=== PATIENT | male | born 1925 | race Caucasian/White ===

== ENCOUNTER 2016-11-07 22:51 | Emergency (ER) | payer MEDICARE, OTHER ==
[2016-11-07] MEDS ORDERED: Albuterol/Ipratropium 3.0-0.5 MG/3 ML Neb Soln NEB ONE (23:15)
[2016-11-07] MEDS ORDERED: Piperacillin/Tazobactam 4.5 GM in Sodium Chloride 0.9% 100 ML IV SCH (23:15)
[2016-11-07 23:57] LABS: CHLORIDE,CL 106 mmol/L (98-107); SODIUM,NA 142 mmol/L (136-145)
--- NOTE | 2016-11-08 00:30 | EDM.PDOC ---
ED HISTORY OF PRESENT ILLNESS - General Chief Complaint: Fever Stated Complaint: SOB and hypoxemia Time Seen by Provider: 11/07/16 23:02 Source of Information: Reports: EMS, RN History Limitations: Reports: Altered mental status, Language barrier (patient just mumbling) - History of Present Illness INITIAL COMMENTS - FREE TEXT/NARRATIVE: Nursing staff at care center stated that the patient began coughing 3 days ago. He developed a fever and became hypoxic 11/07/2016 around 2300. His oxygen saturation was in the low 80's without oxygen. Symptom Onset Date: 11/05/16 Severity: moderate Quality: Reports: Ache Improves with: Reports: Other (oxygen) Context, General: Reports: Exercise Associated Symptoms (General): Reports: cough, fever/chills - Related Data Allergies/ADRs: Allergies Allergy/AdvReac Type Severity Reaction Status Date / Time morphine Allergy Cannot Verified 11/08/16 00:09 Remember Home Meds: Home Meds Acetaminophen [Tylenol] 2 tab PO ASDIRECTED PRN 05/24/15 [History] Famotidine 20 mg PO DAILY 05/24/15 [History] Gabapentin [Neurontin] 100 mg PO TID 05/24/15 [History] Glycopyrrolate [Robinul] 1 mg PO BID 05/24/15 [History] LORazepam 0.5 mg PO ASDIRECTED PRN 05/24/15 [History] levETIRAcetam [Levetiracetam] 1,000 mg PO BID 05/24/15 [History] Amoxicillin/Potassium Clav [Augmentin 875-125 Tablet] 1 each PO BID #20 tablet 11/08/16 [Rx] Past Medical History Cardiovascular History: Reports: Afib, Hypertension Respiratory History: Reports: COPD Gastrointestinal History: Reports: GERD Other Musculoskeletal History: spinal stenosis Neurological History: Reports: CVA, TIA, Other (see below) Other Neuro History: subarachnoid bleed, dysphagia Psychiatric History: Reports: Depression, Psychosis Other Psychiatric History: delusions Hematologic History: Reports: Anemia - Infectious Disease History Infectious Disease History: Reports: MRSA Social & Family History - Tobacco Use Smoking Status *Q: Unknown Ever Smoked - Alcohol Use Days Per Week of Alcohol Use: 1 (drinks on the weekends per his son) - Living Situation & Occupation Living situation: Reports: alone (when he [place] to the farm house, usually lives at [facility]) ED ROS GENERAL - Review of Systems Review Of Systems: ROS reveals no pertinent complaints other than HPI. Constitutional: Reports: fever, chills, weakness, fatigue HEENT: Reports: No symptoms Respiratory: Reports: Shortness of Breath, Wheezing, Cough Cardiovascular: Reports: No symptoms Endocrine: Reports: no symptoms GI/Abdominal: Reports: No symptoms : Reports: no symptoms Musculoskeletal: Reports: no symptoms Skin: Reports: no symptoms Neurological: Reports: Confusion Psychiatric: Reports: No symptoms Hematologic/Lymphatic: Reports: no symptoms Immunologic: Reports: no symptoms ED EXAM, GENERAL - Physical Exam Exam: See Below Exam Limited By: Language barrier General Appearance: alert, mild distress Ears: normal external exam, normal canal, hearing grossly normal, normal TMs Ear Exam: bilateral ear: auricle normal, canal normal, TM normal Nose: normal inspection, normal mucosa, no blood Throat/Mouth: Normal inspection, Normal lips, Normal teeth, Normal gums, Normal oropharynx, Normal voice, No airway compromise Head: atraumatic, normocephalic Neck: normal inspection, supple, non-tender, full range of motion Respiratory/Chest: decreased breath sounds, crackles, wheezing, prolonged expiration Cardiovascular: JVD, tachycardia, irregularly irregular Peripheral Pulses: 2+: radial (L), radial (R) GI/Abdominal: normal bowel sounds, soft, non tender, no organomegaly, no distention, no abnormal bruit, no mass Back Exam: normal inspection, full range of motion, NT Extremities: normal inspection, normal range of motion, non-tender, normal capillary refill, no pedal edema Neurological: alert, confused Psychiatric: anxious Skin Exam: Dry, Intact, Other (hot to touch) Course - Vital Signs Last Recorded V/S: Last Vital Signs Temp 38.3 C H 11/07/16 22:55 Pulse 103 H 11/07/16 23:45 Resp 20 11/07/16 23:45 BP 137/78 11/07/16 23:45 Pulse Ox 92 L 11/07/16 23:45 - Orders/Labs/Meds Orders: Active Orders 24 hr Category Date Time Status CXR [Chest 1V Frontal] [CR] Stat Exams 11/07/16 23:14 Taken CULTURE BLOOD [BC] Stat Lab 11/07/16 23:20 Results CULTURE BLOOD [BC] Stat Lab 11/07/16 23:25 Results Piperacillin/Tazobactam [Zosyn] 4.5 gm Med 11/07/16 23:15 Active Sodium Chloride 0.9% [Normal Saline] 100 ml IV Q6H Blood Culture x2 Reflex Set [OM.PC] Stat Oth 11/07/16 23:12 Ordered Medication Orders Piperacillin Sod/Tazobactam (Sod 4.5 gm/ Sodium Chloride) 100 mls @ 200 mls/hr IV Q6H ANGELA Last Admin: 11/07/16 23:54 Dose: 200 mls/hr Labs: Laboratory Tests 11/07/16 11/07/16 11/07/16 Range/Units 23:20 23:20 23:20 WBC 5.0 (4.0-10.0) x10^3/uL RBC 4.54 (4.5-6.0) x10^6/uL Hgb 14.4 (14.0-18.0) g/dL Hct 42.8 (40.0-52.0) % MCV 94.3 H (78.0-93.0) fL MCH 31.7 (26.0-32.0) pg MCHC 33.6 (32.0-36.0) g/dL RDW Coeff of [place] 14.3 (10.0-15.0) % Plt Count 272 (130-400) x10^3/uL Neut % (Auto) 81.7 H (50.0-80.0) % Lymph % (Auto) 13.1 L (25.0-50.0) % [place] % (Auto) 4.6 (2.0-11.0) % Eos % (Auto) 0.0 (0.0-4.0) % Baso % (Auto) 0.6 (0.2-1.2) % PT 13.1 H (10.0-12.8) SEC INR 1.2 L (2.0-3.5) APTT 24.7 (24.0-36.0) SEC Sodium 142 (136-145) mmol/L Potassium 3.8 (3.5-5.1) mmol/L Chloride 106 (98-107) mmol/L Carbon Dioxide 22 (21-32) mmol/L BUN 32 H (7-18) mg/dL Creatinine 1.0 (0.70-1.30) mg/dL Est Cr Clr Drug Dosing TNP Estimated GFR (MDRD) > 60 Glucose 245 H (74-106) mg/dL Lactic Acid (0.4-2.0) mmol/L Calcium 8.6 (8.5-10.1) mg/dL Corrected Calcium 8.92 (8.5-10.1) mg/dL Total Bilirubin 1.2 H (0.2-1.0) mg/dL AST 27 (15-37) U/L ALT 39 (16-63) U/L Alkaline Phosphatase 159 H (46-116) U/L Total Protein 7.4 (6.4-8.2) g/dL Albumin 3.6 (3.4-5.0) g/dL Globulin 3.8 Albumin/Globulin Ratio 0.95 / Range/Units 23:20 WBC (4.0-10.0) x10^3/uL RBC (4.5-6.0) x10^6/uL Hgb (14.0-18.0) g/dL Hct (40.0-52.0) % MCV (78.0-93.0) fL MCH (26.0-32.0) pg MCHC (32.0-36.0) g/dL RDW Coeff of [place] (10.0-15.0) % Plt Count (130-400) x10^3/uL Neut % (Auto) (50.0-80.0) % Lymph % (Auto) (25.0-50.0) % [place] % (Auto) (2.0-11.0) % Eos % (Auto) (0.0-4.0) % Baso % (Auto) (0.2-1.2) % PT (10.0-12.8) SEC INR (2.0-3.5) APTT (24.0-36.0) SEC Sodium (136-145) mmol/L Potassium (3.5-5.1) mmol/L Chloride (98-107) mmol/L Carbon Dioxide (21-32) mmol/L BUN (7-18) mg/dL Creatinine (0.70-1.30) mg/dL Est Cr Clr Drug Dosing Estimated GFR (MDRD) Glucose (74-106) mg/dL Lactic Acid 3.0 H (0.4-2.0) mmol/L Calcium (8.5-10.1) mg/dL Corrected Calcium (8.5-10.1) mg/dL Total Bilirubin (0.2-1.0) mg/dL AST (15-37) U/L ALT (16-63) U/L Alkaline Phosphatase (46-116) U/L Total Protein (6.4-8.2) g/dL Albumin (3.4-5.0) g/dL Globulin Albumin/Globulin Ratio Meds: Medications Generic Name Dose Route Start Last Admin Trade Name Freq PRN Reason Stop Dose Admin Piperacillin Sod/Tazobactam 100 mls @ 200 mls/hr 11/07/16 23:15 11/07/16 23: 54 Sod 4.5 gm/ Sodium Chloride IV 200 mls/hr Q6H ANGELA Administration Discontinued Medications Generic Name Dose Route Start Last Admin Trade Name Freq PRN Reason Stop Dose Admin Albuterol/Ipratropium 3 ml 11/07/16 23:15 11/07/16 23:55 Duoneb 3.0-0.5 Mg/3 Ml NEB 11/07/16 23:16 3 ml ONETIME ONE Administration - Radiology Interpretation Free Text/Narrative:: CXR shows possible right lower lobe infiltrate Departure - Departure Time of Disposition: 00:45 Disposition: DC/Tfer to [facility] Preliminary Cause of *Q: Respiratory failure Condition: good Clinical Impression: Pneumonia Qualifiers: Pneumonia type: aspiration pneumonia Aspiration pneumonia type: unspecified Laterality: right Lung location: lower lobe of lung Qualified Code(s): J69.0 - Pneumonitis due to inhalation of food and vomit Forms: ED Department Discharge Additional Instructions: Patient to follow up with Dr Hughes in the clinic on 11/08/2016 in the AM. Patient to be maintained on 4L oxygen NC to maintain SpO2 > 92%. DuoNebs q4 hours prn for SOB and hypoxia. ED Communication - ED Communication Date/Time Date: 11/08/16 Time Called: 00:20 - Discussed Case With (1) Discussed Case With (1): Outpatient Provider Person/s Notified (1): Lakshmi Hughes (She will f/u c pt in clinic tomorro) - My Orders Last 24 Hours: My Active Orders 11/07/16 23:12 Blood Culture x2 Reflex Set [OM.PC] Stat 11/07/16 23:14 CXR [Chest 1V Frontal] [CR] Stat 11/07/16 23:15 Piperacillin/Tazobactam [Zosyn] 4.5 gm Sodium Chloride 0.9% [Normal Saline] 100 ml IV Q6H 11/07/16 23:20 CULTURE BLOOD [BC] Stat 11/07/16 23:25 CULTURE BLOOD [BC] Stat - Assessment/Plan Last 24 Hours: My Active Orders 11/07/16 23:12 Blood Culture x2 Reflex Set [OM.PC] Stat 11/07/16 23:14 CXR [Chest 1V Frontal] [CR] Stat 11/07/16 23:15 Piperacillin/Tazobactam [Zosyn] 4.5 gm Sodium Chloride 0.9% [Normal Saline] 100 ml IV Q6H 11/07/16 23:20 CULTURE BLOOD [BC] Stat 11/07/16 23:25 CULTURE BLOOD [BC] Stat
[2016-11-08 00:51] VITALS: BP 146/78
== END 2016-11-08 01:00 ==
LOC: VM.ED 22:51
DX: J18.9 Pneumonia, unspecified organism (principal); I48.91 Unspecified atrial fibrillation; I10 Essential (primary) hypertension; J44.9 Chronic obstructive pulmonary disease, unspecified; K21.9 Gastro-esophageal reflux disease without esophagitis; F32.9 Major depressive disorder, single episode, unspecified; D64.9 Anemia, unspecified; Z88.6 Allergy status to analgesic agent; Z79.899 Other long term (current) drug therapy
CPT/HCPCS: 36415; 71010; 80053; 83605; 85025; 85610; 85730; 87040; 87804; 94640; 96365; 99285; J2543; J7050

== ENCOUNTER 2016-11-08 11:19 | Emergency (ER) | payer MEDICARE, OTHER ==
[2016-11-08] MEDS ORDERED: Iopamidol 612 MG/ML 100 ML Bottle IVPUSH ONE (12:22)
[2016-11-08] MEDS ORDERED: Sodium Chloride 0.9% 100 ML IV ONE (12:22)
--- NOTE | 2016-11-08 12:55 | EDM.PDOC ---
ED HPI GI/ABDOMINAL - General Chief Complaint: Abdominal Pain Stated Complaint: BOWEL ISSUES Time Seen by Provider: 11/08/16 11:26 Source of Information: Reports: Provider History Limitations: Reports: No limitations - History of Present Illness INITIAL COMMENTS - FREE TEXT/NARRATIVE: Patient was complaining of generalized abdominal pain in the clinic this AM after his follow up visit for RLL pneumonia. They completed an abdominal xray and labs at the clinic and asked that we evaluate the patient for an enlarged colon here in the ED with a CT. Symptom Onset Date: 11/08/16 Symptom Onset Time: 11:20 Timing/Duration: Reports: Gradual onset Location: generalized Quality: Reports: cramping, fullness Severity: mild Improves with: Reports: lying down Worsens with: Reports: palpation Associated Symptoms: Reports: fever/chills, malaise - Related Data Allergies/ADRs: Allergies Allergy/AdvReac Type Severity Reaction Status Date / Time morphine Allergy Cannot Verified 11/08/16 12:07 Remember Home Meds: Home Meds Acetaminophen [Tylenol] 2 tab PO Q6H PRN 05/24/15 [History] Famotidine 20 mg PO DAILY 05/24/15 [History] Gabapentin [Neurontin] 100 mg PO TID 05/24/15 [History] Glycopyrrolate [Robinul] 1 mg PO BID 05/24/15 [History] LORazepam 0.5 mg PO Q6H PRN 05/24/15 [History] levETIRAcetam [Levetiracetam] 1,000 mg PO BID 05/24/15 [History] Amoxicillin/Potassium Clav [Augmentin 875-125 Tablet] 1 each PO BID #20 tablet 11/08/16 [Rx] Bisacodyl [Dulcolax] 10 mg RECTAL DAILY PRN 11/08/16 [History] Bisacodyl [Laxative] 5 mg PO DAILY PRN 11/08/16 [History] Chlorhexidine Gluconate [Peridex 0.12% Rinse] 0.5 container PO ASDIRECTED [History] Dextran 70/Hypromellose [Artificial Tears] 1 each EYEBOTH Q4H PRN 11/08/16 [ History] Fluticasone/Vilanterol [Breo Ellipta 100-25 MCG Inhalation Kit] 1 puff IH TID [History] Ibuprofen 80 mg PO Q6H PRN 11/08/16 [History] Ipratropium/Albuterol Sulfate [Combivent Respimat Inhal [place]] 1 puff IH QID [History] Loperamide HCl [Imodium A-D] 2 mg PO ASDIRECTED PRN 11/08/16 [History] Phenytoin Sodium Extended [Dilantin] 200 mg PO BID 11/08/16 [History] Psyllium Husk/Aspartame [Ml-Mucil Powder] 5 ml PO DAILY 11/08/16 [History] Past Medical History Cardiovascular History: Reports: Afib, Hypertension Respiratory History: Reports: COPD Gastrointestinal History: Reports: GERD Other Musculoskeletal History: spinal stenosis Neurological History: Reports: CVA, TIA, Other (see below) Other Neuro History: subarachnoid bleed, dysphagia Psychiatric History: Reports: Depression, Psychosis Other Psychiatric History: delusions Hematologic History: Reports: Anemia - Infectious Disease History Infectious Disease History: Reports: MRSA Social & Family History - Tobacco Use Smoking Status *Q: Unknown Ever Smoked - Alcohol Use Days Per Week of Alcohol Use: 1 (drinks on the weekends per his son) - Living Situation & Occupation Living situation: Reports: alone (when he goes out to the farm house, usually lives at [facility]) ED ROS GENERAL - Review of Systems Review Of Systems: See Below Constitutional: Reports: fever, chills, malaise, weakness, fatigue HEENT: Reports: No symptoms Respiratory: Reports: Shortness of Breath, Wheezing, Cough Cardiovascular: Reports: Dyspnea on exertion Endocrine: Reports: no symptoms GI/Abdominal: Reports: Abdominal pain, Constipation, Distension : Reports: no symptoms Musculoskeletal: Reports: muscle pain, muscle stiffness Skin: Reports: no symptoms Neurological: Reports: Confusion, Weakness Psychiatric: Reports: Confusion Hematologic/Lymphatic: Reports: no symptoms Immunologic: Reports: no symptoms ED EXAM, GI/ABD - Physical Exam Exam: See Below Exam Limited By: Altered mental status General Appearance: alert, no apparent distress Ears: normal external exam, normal canal, hearing grossly normal, normal TMs Nose: normal inspection, normal mucosa, no blood Throat/Mouth: Normal inspection, Normal lips, Normal teeth, Normal gums, Normal oropharynx, Normal voice, No airway compromise Head: atraumatic, normocephalic Neck: supple, non-tender Respiratory/Chest: decreased breath sounds, crackles, prolonged expiration ( crackles and adventious sounds to the right lower lobe) GI/Abdominal: hypoactive bowel sounds, tenderness (generalized tenderness with palpation), distention Back Exam: normal inspection, full range of motion, NT Extremities: normal inspection, normal range of motion, non-tender, normal capillary refill, no pedal edema Neurological: alert, confused Psychiatric: normal affect, normal mood Skin Exam: Warm, Dry, Intact, Normal color Lymphatic: no adenopathy Course - Vital Signs Last Recorded V/S: Last Vital Signs Temp 36.6 C 11/08/16 11:25 Pulse 92 11/08/16 11:25 Resp 28 H 11/08/16 11:25 BP 106/53 L 11/08/16 11:25 Pulse Ox 91 L 11/08/16 11:25 - Orders/Labs/Meds Orders: Active Orders 24 hr Category Date Time Status RT Aerosol Therapy [RC] ASDIRECTED Care 11/08/16 13:36 Active Abdomen Pelvis w Cont [CT] Stat Exams 11/08/16 11:33 Taken Chest 1V Frontal [CR] Routine Exams 11/08/16 13:25 Taken Sodium Chloride 0.9% [Normal Saline] 1,000 ml Med 11/08/16 13:45 Active IV ASDIRECTED Nasogastric Orogastric Tube Insertion [OM.PC] Routine Oth 11/08/16 12:25 Ordered Medication Orders Sodium Chloride (Normal Saline) 1,000 mls @ 200 mls/hr IV ASDIRECTED ANGELA Last Admin: 11/08/16 13:40 Dose: 200 mls/hr Labs: Laboratory Tests 11/08/16 Range/Units 13:59 POC ABG pH 7.394 (7.35-7.45) POC ABG pCO2 33 L (35-45) mmHG POC ABG pO2 69 L (80-105) mmHG POC ABG HCO3 20 L (22-26) mmol/L POC ABG Total CO2 21 L (23-27) mmol/L POC ABG O2 Sat 94 L (95-98) % POC ABG Base Excess -5 L (-2-3) mmol/L POC FiO2 0.36 Meds: Medications Generic Name Dose Route Start Last Admin Trade Name Freq PRN Reason Stop Dose Admin Sodium Chloride 1,000 mls @ 200 mls/hr 11/08/16 13:45 11/08/16 13:40 Normal Saline IV 200 mls/hr ASDIRECTED ANGELA Administration Discontinued Medications Generic Name Dose Route Start Last Admin Trade Name Elvis PRN Reason Stop Dose Admin Albuterol/Ipratropium 3 ml 11/08/16 13:36 11/08/16 13:55 Duoneb 3.0-0.5 Mg/3 Ml NEB 11/08/16 13:37 3 ml ONETIME ONE Administration Sodium Chloride 100 mls @ 3 mls/sec 11/08/16 12:22 11/08/16 12:24 Normal Saline IV 11/08/16 12:23 3 mls/sec ONETIME ONE Administration Lactated Ringer's 1,000 mls @ 200 mls/hr 11/08/16 13:15 11/08/16 13:25 Ringers, Lactated IV 200 mls/hr ASDIRECTED ANGELA Administration Piperacillin Sod/Tazobactam 100 mls @ 200 mls/hr 11/08/16 13:08 11/08/16 13: 45 Sod 4.5 gm/ Sodium Chloride IV 11/08/16 13:37 200 mls/hr Q6H ONE Administration Iopamidol 100 ml 11/08/16 12:22 11/08/16 12:24 Isovue-300 (61%) IVPUSH 11/08/16 12:23 100 ml ONETIME ONE Administration - Radiology Interpretation Free Text/Narrative:: Per radiology jefferson; RLL pneumonia with an otherwise normal abdominal study. Stool in the rectal vault. Repeat CXR shows increase consolidation in the right lung with increased bowel protrusion through hiatal hernia on the left. CT Results Date: 11/08/16 CT Results Time: 12:45 Departure - Departure Time of Disposition: 15:00 Disposition: DC/Tfer to Acute Hospital 02 Preliminary Cause of *Q: Respiratory failure Condition: fair Clinical Impression: Pneumonia Qualifiers: Pneumonia type: aspiration pneumonia Aspiration pneumonia type: unspecified Laterality: right Lung location: lower lobe of lung Qualified Code(s): J69.0 - Pneumonitis due to inhalation of food and vomit Instructions: Constipation, Adult, [id number] Forms[facility] Communication - Discussed Case With (1) Discussed Case With (1): Outpatient Provider Person/s Notified (1): Anette Vidal Lucien (She will be coming in to see the pt) - My Orders Last 24 Hours: My Active Orders 11/08/16 11:33 Abdomen Pelvis w Cont [CT] Stat 11/08/16 12:25 Nasogastric Orogastric Tube Insertion [OM.PC] Routine - Assessment/Plan Last 24 Hours: My Active Orders 11/08/16 11:33 Abdomen Pelvis w Cont [CT] Stat 11/08/16 12:25 Nasogastric Orogastric Tube Insertion [OM.PC] Routine Assessment:: Respiratory failure Acute renal failure Right lower lobe aspiration pneumonia Constipation Plan: Admit to ICU for further assessment and treatment.
[2016-11-08] MEDS ORDERED: Piperacillin/Tazobactam 4.5 GM in Sodium Chloride 0.9% 100 ML IV ONE (13:08)
[2016-11-08] MEDS ORDERED: Lactated Ringers 1,000 ML IV SCH (13:15)
[2016-11-08] MEDS ORDERED: Albuterol/Ipratropium 3.0-0.5 MG/3 ML Neb Soln NEB ONE (13:36)
[2016-11-08] MEDS ORDERED: Sodium Chloride 0.9% 1,000 ML IV SCH (13:45)
[2016-11-08 15:12] VITALS: BP 135/66
--- NOTE | 2016-11-09 12:40 | ER ---
Date of Service: 11/08/2016 CHIEF COMPLAINT: Fever with abdominal pain, and known right aspiration pneumonia. HISTORY OF PRESENT ILLNESS: The patient is an 89-year-old male, who had been seen last evening in the emergency department for fever, cough, hypoxemia, and was placed on Zosyn, given a DuoNeb, and sent back to [facility]. His initial lactic acid level had been done and this was 3.0 with a white blood cell count of 5.0, hemoglobin 14.4, platelets 272, 81 segs, 13 lymphocytes. Sodium 142, potassium 3.4, creatinine 1.0, BUN 32, glucose 245. Total bilirubin 1.2. LFTs normal, except alkaline phosphatase 159, and the patient was discharged home on Augmentin with oxygen. The patient was to be followed up in the clinic this morning by Dr. Lakshmi Hughes. [facility], his temperature got up to 102.3 and he had been then seen back in the clinic on 11/08/2016, at that time, he was noted to have much more abdominal discomfort and felt to be dehydrated and so Dr. Hughes had done lab work at the clinic, which showed white blood cell count of 11.9, hemoglobin 14.1, platelets 259, differential was not completed as a manual differential was needed to be done. His sodium was 140, potassium 4.2, creatinine had gone up to 1.56, BUN 39, glucose was 335, LFTs stayed normal, GFR had dropped down to 42. The patient had a lactic acid done at [facility] that was 5.8 and CRP was elevated at 20.2. The patient was again seen by the PA in the ER at [facility] of which plain x-ray was done of abdomen which showed dilated loops of colon with much stool present. 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 To note, the patient when he was in the emergency department now was requiring 4 L of oxygen, respiratory rate was going from 28 to 30. His respiratory rate was 28, sats were 93%, blood pressure dropped down to 112/51 to 106/53. Apparently attempts were made to contact [facility] and because he wasn't a surgical candidate for his colon then "they were going to accept the patient" and so I have asked for to assess the patient to help determine care needed. For medications, allergies, past history, family history, social history, please refer to note by Tarun Zacarias. REVIEW OF SYSTEMS: The patient is not able to drink much, does have known problems with aspiration due to dysphagia. He has forgetfulness due to his dementia. No chest pain. He does have some abdominal discomfort in epigastric area. He had been having some problems with his bowels noted on 10/27 with not being able to empty completely. Extremities, no edema. He does feel weak in general. PHYSICAL EXAMINATION: Vital signs: Temperature at the clinic had been 100.2, his pulse was initially 88 had gone to 103, blood pressure 112/51, respiratory rate is 31, sats 94% on 4 L. Skin: [place] and diaphoretic. HEENT: Mucous membranes are quite dry. General: He does recognize who I am. He does have dysarthria with talking. Heart: Tachycardic. Lungs: Inspiratory crackles bilaterally. Abdomen: Distended. There was no bowel sounds present, it is firm, but there is no guarding with some epigastric tenderness. Rectal: Not done. Extremities: Slender thin. Neurologic: The patient is forgetful, he does have dysarthria. Psych: The patient at times has felt sad. The patient was started on LR initially and switched normal saline. Zosyn antibiotic was repeated at noon of 4.5 g. The patient was noted to have gotten his oral Augmentin in the morning about 8 or so. I did contact Dr. Seaman, from the [facility] at [place] about the patient being septic with needing a higher level of care than what is available here. His stomach had a previous fecal impaction and certainly could be recurring again, but his pneumonia and his vital signs are more abnormal and concerning for needing a higher level of care. Dr. Seaman had requested a repeat chest x- ray as well as blood gases to be done. Repeat chest x-ray was done, which to my eyes did appear to be worse on the right, also he wanted the exact report of the CT scan, so he was told to visit with ELLIS Zacarias. Blood gases were not able to be done until 13:59 and it came back with pH of 7.39, pCO2 33, PO2 69, bicarb 20, and oxygen 94 on 4 L. IMPRESSION: 1. Right lower lobe pneumonia suspect aspiration. 2. Sepsis with SIRS. 3. Abdominal distention possibly [place]'s syndrome. 4. Chronic constipation. 5. Dementia. 6. Hyperglycemia. 7. Dehydration. 8. 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 PLAN: 1. Care was turned back over to Tarun CORRAL to handle arrangements talking again to [facility] to finalize transfer for patient to [place]. He was given a gram of vancomycin. To note CRP was 20.2. The patient did have blood cultures that were drawn on 11/07/2016, which are pending from [facility]. If the patient would require surgery as family was contacted and they did agree to consider surgery. The patient is code level 3, status DNI/DNR. GM11/08/2016 16:26:26 MODL: 11/08/2016 22:11:59 /[id number] JOSE
== END 2016-11-08 15:25 | disposition short-term general hospital (02) ==
LOC: VM.ED 11:19
DX: J69.0 Pneumonitis due to inhalation of food and vomit (principal); A41.9 Sepsis, unspecified organism; E86.0 Dehydration; K59.00 Constipation, unspecified; F03.90 Unspecified dementia, unspecified severity, without behavioral disturbance, psychotic disturbance, mood disturbance, and anxiety; R00.0 Tachycardia, unspecified; R73.9 Hyperglycemia, unspecified; Z86.14 Personal history of Methicillin resistant Staphylococcus aureus infection
CPT/HCPCS: 36600; 71010; 74177; 82803; 94640; 96361; 96365; 96375; 99285; J2543; J3370; J7030; J7050; J7120; Q9967